=== PATIENT | female | born 1950 | race Caucasian/White ===

== ENCOUNTER → 2024-03-05 06:24 | Day surgery (SDC) | payer MEDICARE, OTHER, SELFPAY | LOC: GI 06:24 | PROVIDERS: ATTENDING PHYSICIAN Surgery | DX: R19.4 Change in bowel habit (principal); K57.30 Diverticulosis of large intestine without perforation or abscess without bleeding; K63.5 Polyp of colon | CPT/HCPCS: 45380; 88305 ==

== ENCOUNTER → 2024-07-14 10:18 | Outpatient (REF) | payer MEDICARE, OTHER, SELFPAY ==
[2024-07-14 11:40] LABS: Blood Urea Nitrogen 17 mg/dl (7-17); Calcium 10.1 mg/dl (8.4-10.2); Carbon Dioxide 29 mmol/L (22-30); Chloride 103 mmol/L (98-107); Glucose 119 mg/dl (70-99); Potassium 4.3 mmol/L (3.5-5.1); Sodium 140 mmol/L (135-145); eGFR > 60.00
== END ==
LOC: REG 10:18
PROVIDERS: ATTENDING PHYSICIAN Surgery; FAMILY PHYSICIAN Family Medicine
DX: R19.4 Change in bowel habit (principal)
CPT/HCPCS: 36415; 80048

== ENCOUNTER → 2024-07-17 11:17 | Outpatient (REF) | payer MEDICARE, OTHER, SELFPAY | LOC: RAD 11:17 | PROVIDERS: ATTENDING PHYSICIAN Surgery; FAMILY PHYSICIAN Family Medicine | DX: R19.4 Change in bowel habit (principal) | CPT/HCPCS: 74177; Q9967 ==

== ENCOUNTER 2024-08-17 11:15 | Emergency (ER) | payer MEDICARE, OTHER, SELFPAY ==
[2024-08-17 11:16] VITALS: BP 157/87
[2024-08-17] MEDS: NSS 1000 IV (12:41)
[2024-08-17] MEDS: ZOFRAN 4 MG IV (12:41)
[2024-08-17] MEDS: OMNIPAQUE 50 ML PO (12:46)
[2024-08-17] MEDS: MORPHINE SULFATE 4 MG IV (12:46)
[2024-08-17 12:57] LABS: % Basophils 0.6 % (0-2); % Eosinophils 0.1 % (0-6); % Immature Granulocytes 0.3 % (0-0.5); % Lymphocytes 18.5 % (20.5-51.1); % Monocytes 5.8 % (1.7-9.3); % Neutrophils 74.7 % (42.2-75.2); Absolute Lymphocytes 1.3 10^3/uL (1.2-3.4); Absolute Monocytes 0.4 10^3/uL (0.1-0.6); Absolute Neutrophils 5.2 10^3/uL (1.4-6.5); Hematocrit 36.9 % (37.0-47.0); Hemoglobin 12.3 g/dL (12.0-16.0); Mean Corp Hgb Conc. 33.3 g/dL (33.0-37.0); Mean Corpuscular Hgb 30.1 pg (27.0-31.0); Mean Corpuscular Volume 90.2 fL (81.0-99.0); Mean Platelet Volume 9.2 fL (7.4-10.4); Nucleated Red Blood Cells % 0 %; Platelet Count 248 10^3/uL (130-400); Red Blood Cell Count 4.09 10^6/uL (4.20-5.40); Red Cell Dist. Width 13.8 % (11.5-14.5)
[2024-08-17 13:00] VITALS: BP 144/86
--- NOTE | 2024-08-17 13:02 | ED.GENMED ---
History of Present Illness
<William Lin, DO - Last Filed: 08/17/24 14:39>
General
Chief Complaint: Abdominal Pain
Source: patient, records, previous radiology exam and previous hospital records
Exam Limitations: none
Time Seen by Provider: 08/17/24 11:55
Nursing documentation reviewed up to this point in time: agreed with
History of Present Illness
History of Present Illness:
72-year-old female presents with abdominal cramping she is concerned that she has a bowel obstruction, she has had a long history of irritable bowel syndrome she has developed some distention, in the morning she passes gas and mushy stool, she saw
Dr. Sykes colorectal surgery had a colonoscopy and a CAT scan results of which I reviewed, today she woke up with her normal distention passing gas mushy stools also with pain concerned that she had an obstruction, no vomiting, no blood in her
stool, she had a hysterectomy 37 years ago but no other abdominal surgeries never formally diagnosed with a obstruction, she is a retired operating room nurse, former smoker none recently nondrinker, never told that she had Crohn's or colitis
Past History
<William Lin, DO - Last Filed: 08/17/24 14:39>
Past History
ED Past Medical History: Other (IBS)
Social History
Tobacco: Former smoker
Alcohol: None
Family History
Family History: Negative Diabetes, Hypertension or CAD
Review of Systems
<William Lin, DO - Last Filed: 08/17/24 14:39>
Review of Systems
All Other Systems: Not applicable
Constitutional: Denies fever or fatigue
EENT: Reports no symptoms
Respiratory: Reports no symptoms
Cardiac: Reports no symptoms
ABD/GI: Reports abdominal pain and nausea; Denies anorexia
: Reports no symptoms
Musculoskeletal: Reports no symptoms
Skin: Reports no symptoms
Neurological: Reports no symptoms
Endocrine: Reports no symptoms
Phy Exam
<William Lin, DO - Last Filed: 08/17/24 14:39>
Physical Exam
Physical Exam:
Physical Exam
General: no apparent distress, not acutely ill
Neck: No jaundice lymph normal
Heart: s1/s2 regular rate and rhythm, no murmur. equal radial pulses.
Lungs: no acute respiratory distress. clear bilaterally
Abdomen: Distended bowel sounds are present mild diffuse tenderness
Neuro: alert and oriented. no focal neurological deficits
Skin: no rash
Psychiatric: well kept. interactive and cooperative
Extremities: no edema.
Course
<William Lin, DO - Last Filed: 08/17/24 14:39>
Orders/Labs/Results
Orders:
Orders
08/17/24 12:23
Iohexol [Omnipaque] See Protocol PO NOW STA
08/17/24 12:24
CT Abd/pel W Iv And Oral Contr Urgent
Comment:
Reason For Exam: pain
08/17/24 12:25
0.9% Sodium Chloride 1000 ml [Nss] 1,000 ml IV BOLUS
Morphine Sulfate 4 mg IV NOW STA
Ondansetron Injectable [Zofran] 4 mg IV NOW STA
08/17/24 12:38
CRP [C-Reactive Protein] Urgent
Complete Blood Count/With Diff Urgent
Comprehensive Metabolic Panel Urgent
ESR [Erythrocyte Sed Rate] Urgent
Lipase Urgent
08/17/24 16:57
Dicyclomine [Bentyl] 20 mg PO NOW STA
Abnormal Lab Results
08/17/24
12:38
RBC 4.09 L 10^6/uL
(4.20-5.40)
Hct 36.9 L %
(37.0-47.0)
Lymphocytes % 18.5 L %
(20.5-51.1)
Chloride 108 H mmol/L
(98-107)
Glucose 140 H mg/dl
(70-99)
AST 40 H U/L
(14-36)
Alkaline Phosphatase 157 H U/L
(38-126)
08/17/24 12:38
08/17/24 12:38
Vital Signs
Initial and Last Documented VS:
Initial Vital Signs
Temp Pulse Resp BP Pulse Ox
98.0 F 88 18 157/87 98
08/17/24 11:16 08/17/24 11:16 08/17/24 11:16 08/17/24 11:16 08/17/24 11:16
Last Documented Vital Signs
Temp Pulse Resp BP Pulse Ox
98.0 F 79 26 131/83 98
08/17/24 11:16 08/17/24 16:45 08/17/24 16:45 08/17/24 16:00 08/17/24 16:45
<Emil Jacobson PA-C - Last Filed: 08/17/24 18:38>
Orders/Labs/Results
Orders:
Orders
08/17/24 12:23
Iohexol [Omnipaque] See Protocol PO NOW STA
08/17/24 12:24
CT Abd/pel W Iv And Oral Contr Urgent
Comment:
Reason For Exam: pain
08/17/24 12:25
0.9% Sodium Chloride 1000 ml [Nss] 1,000 ml IV BOLUS
Morphine Sulfate 4 mg IV NOW STA
Ondansetron Injectable [Zofran] 4 mg IV NOW STA
08/17/24 12:38
CRP [C-Reactive Protein] Urgent
Complete Blood Count/With Diff Urgent
Comprehensive Metabolic Panel Urgent
ESR [Erythrocyte Sed Rate] Urgent
Lipase Urgent
08/17/24 16:57
Dicyclomine [Bentyl] 20 mg PO NOW STA
Abnormal Lab Results
08/17/24
12:38
RBC 4.09 L 10^6/uL
(4.20-5.40)
Hct 36.9 L %
(37.0-47.0)
Lymphocytes % 18.5 L %
(20.5-51.1)
Chloride 108 H mmol/L
(98-107)
Glucose 140 H mg/dl
(70-99)
AST 40 H U/L
(14-36)
Alkaline Phosphatase 157 H U/L
(38-126)
08/17/24 12:38
08/17/24 12:38
Vital Signs
Initial and Last Documented VS:
Initial Vital Signs
Temp Pulse Resp BP Pulse Ox
98.0 F 88 18 157/87 98
08/17/24 11:16 08/17/24 11:16 08/17/24 11:16 08/17/24 11:16 08/17/24 11:16
Last Documented Vital Signs
Temp Pulse Resp BP Pulse Ox
98.0 F 79 26 131/83 98
08/17/24 11:16 08/17/24 16:45 08/17/24 16:45 08/17/24 16:00 08/17/24 16:45
<William Lin, - Last Filed: 08/17/24 14:39>
MDM/Problems Addressed
Differential Diagnosis Includes:
Irritable bowel syndrome, inflammatory bowel syndrome diverticulosis, diverticulitis, constipation obstipation doubt complete obstruction
MDM/Problems Addressed:
Abdominal pain
Chronic conditions affecting care:
Abdominal pain
Chronic conditions affecting care: Previous abdomnial surgery
Acute Exacerbation and/or Progression of Chronic Illness: Previous abdomnial surgery
<William Lin, - Last Filed: 08/17/24 14:39>
*Radiology
Radiology exam reviewed: radiology read reviewed
*Pulse Oximetry
Patient hypoxic: no
*Pbx Teacher Interpretation
Rate: normal
Interpretation: normal
Heart Rate: 78
Rhythm: sinus
*Critical Care Note
Total Time (30-74mins, 75-104mins- exclusive of procedures): Not Applicable
Data Reviewed
Review of Other/Old Records Reveals: Radiology Studies (CT scan abdomen pelvis) and Operative Reports (Colonoscopy)
Source: patient and records
<William Lin DO - Last Filed: 08/17/24 14:39>
Update Note
Update Note:
Update, doubt complete obstruction by history and physical, her diagnosis appears to be elusive's been worked up by colorectal surgery already, will check inflammatory markers, CT scan with IV and p.o. contrast she has had diverticulosis and
constipation previous
2:40 PM, patient more comfortable reviewed plan of care labs thus far
<Emil Jacobson PA-C - Last Filed: 08/17/24 18:38>
Update Note
Update Note:
Update, doubt complete obstruction by history and physical, her diagnosis appears to be elusive's been worked up by colorectal surgery already, will check inflammatory markers, CT scan with IV and p.o. contrast she has had diverticulosis and
constipation previous
2:40 PM, patient more comfortable reviewed plan of care labs thus far
1650: Updated patient regarding her CT findings. Plan will be to place the patient on Bentyl and have her follow-up as an outpatient with her GI specialist and/or colorectal surgery regarding further management
ED Attending Note
<William Lin DO - Last Filed: 08/17/24 14:39>
-
Portions of this chart may have been created with voice recognition software.� Occasional wrong word or��sound alike� substitutions may have occurred due to the inherent limitations of voice recognition software.
Discharge Plan
Departure
Patient Disposition: Home (Routine Discharge)
Date of Disposition: 08/17/24
Time of Disposition: 16:57
Patient with high blood pressure during this ER visit?: No
Condition: Good
Discharge Problem:
Abdominal pain
Instructions: Abdominal Pain
Prescriptions:
New
dicyclomine 20 mg tablet
20 mg PO QID PRN (Reason: abdominal pain) Qty: 20 0RF
Referrals:
Agnes Horn MD [Family Provider] -
Interventions
Interventions:
*Risk Screen - Suicide Last Done: 08/17/24 11:16
*General Assessment Last Done: 08/17/24 11:16
*Neglect/Abuse Screening Last Done: 08/17/24 11:18
*ED- Fall Risk Assessment Last Done: 08/17/24 15:24
*ED COVID-19 Vaccine History Last Done: 08/17/24 12:00
*Nursing Disposition Last Done: 08/17/24 17:59
UD-Ygiyhf-[id number] Assessment Last Done: 08/17/24 12:00
Discharge Date and Time
Discharge Date/Time: 08/17/24 17:30
Print Language: SWAZI
[2024-08-17 13:10] LABS: ALT (SGPT) 26 U/L (0-35); AST (SGOT) 40 U/L (14-36); Albumin 4.4 g/dl (3.5-5.0); Alkaline Phosphatase 157 U/L (38-126); Blood Urea Nitrogen 12 mg/dl (7-17); Calcium 9.9 mg/dl (8.4-10.2); Carbon Dioxide 25 mmol/L (22-30); Chloride 108 mmol/L (98-107); Glucose 140 mg/dl (70-99); Sodium 142 mmol/L (135-145); Total Protein 6.8 g/dl (6.3-8.2); eGFR > 60.00
[2024-08-17 13:15] LABS: C-Reactive Protein < 5.00 mg/L (0.0-10.00)
[2024-08-17 13:20] LABS: Lipase 102 U/L (23-300)
[2024-08-17 13:46] LABS: Erythrocyte Sed Rate 2 mm/hour (0-20)
[2024-08-17 14:00] VITALS: BP 140/81
[2024-08-17 15:21] VITALS: BP 143/87
[2024-08-17 15:25] VITALS: BMI 21.7
[2024-08-17 16:00] VITALS: BP 131/83
[2024-08-17] MEDS: BENTYL 20 MG PO (17:36)
== END 2024-08-17 17:30 | disposition home or self-care (01) ==
LOC: EMR 11:15
PROVIDERS: EMERGENCY PHYSICIAN Emergency Medicine; FAMILY PHYSICIAN Family Medicine
DX: R10.9 Unspecified abdominal pain (principal); R14.0 Abdominal distension (gaseous); R11.0 Nausea; K58.9 Irritable bowel syndrome, unspecified; E78.5 Hyperlipidemia, unspecified; E03.9 Hypothyroidism, unspecified; Z87.891 Personal history of nicotine dependence
CPT/HCPCS: 99284; 96375; 96361; 96374; 74177; 80053; 83690; 85025; 85652; 86140; Q9967

== ENCOUNTER → 2024-11-28 12:23 | Outpatient (REF) | payer MEDICARE, OTHER, SELFPAY | LOC: MRI 12:23 | PROVIDERS: ATTENDING PHYSICIAN Internal Medicine Gastroenterology; FAMILY PHYSICIAN Family Medicine | DX: R93.89 Abnormal findings on diagnostic imaging of other specified body structures (principal); R74.8 Abnormal levels of other serum enzymes | CPT/HCPCS: 74183; A9575 ==

== ENCOUNTER 2025-01-21 06:23 | Day surgery (SDC) | payer MEDICARE, OTHER, SELFPAY | END 2025-01-21 14:43 | disposition home or self-care (01) | LOC: GI 06:23 | PROVIDERS: ATTENDING PHYSICIAN Internal Medicine Gastroenterology | DX: D12.0 Benign neoplasm of cecum (principal); D12.2 Benign neoplasm of ascending colon; K63.5 Polyp of colon; K56.2 Volvulus; K57.30 Diverticulosis of large intestine without perforation or abscess without bleeding; K64.9 Unspecified hemorrhoids | CPT/HCPCS: 45385; 45380; 88305 ==

== ENCOUNTER 2025-03-10 06:14 | Day surgery (SDC) | payer MEDICARE, OTHER, SELFPAY ==
[2025-03-10 10:32] VITALS: BMI 20.8
[2025-03-10 10:33] VITALS: BP 115/78; BMI 20.8
[2025-03-10 13:18] VITALS: BP 106/88
[2025-03-10 13:20] VITALS: BP 106/88
[2025-03-10 13:30] VITALS: BP 113/84
== END 2025-03-10 13:57 | disposition home or self-care (01) ==
LOC: SDS 06:14
PROVIDERS: ATTENDING PHYSICIAN Internal Medicine Gastroenterology
DX: D12.0 Benign neoplasm of cecum (principal); K64.0 First degree hemorrhoids
CPT/HCPCS: 45390; 88305